=== PATIENT | male | born 1995 | race Two or more races ===

== ENCOUNTER 2023-09-11 16:45 | Emergency (ER) | payer OTHER ==
[~2023-09-11] VITALS: Ht 175.3 cm; Wt 81.6 kg
[2023-09-11] MEDS ORDERED: BACTRIM DS TAB1 EACH PO (17:47)
== END 2023-09-11 18:22 | disposition home or self-care (01) ==
LOC: ER 16:45
DX: L02.416 Cutaneous abscess of left lower limb (principal)